=== PATIENT | female | born 2000 | race Hispanic/Latino ===

== ENCOUNTER 2020-11-09 14:44 | Outpatient (CLI) | payer OTHER | END 2020-11-09 14:45 | disposition home or self-care (01) | LOC: BICULT 14:44 | PROVIDERS: ATTEND Family Medicine | DX: Z34.02 Encounter for supervision of normal first pregnancy, second trimester (principal); Z3A.19 19 weeks gestation of pregnancy | CPT/HCPCS: 76805 ==

== ENCOUNTER 2023-03-22 19:27 | Emergency (ER) | payer MEDICAID, SELFPAY ==
[2023-03-22] MEDS ORDERED: Ondansetron ODT 4 MG TAB ONE (19:40)
[2023-03-22 19:57] LABS: #Eosinphils 0.3 thou/uL (0.0-0.7); #Monocytes 0.9 thou/uL (0.11-0.59); #Neutrophils 6.4 thou/uL (1.40-6.50); %Basophils 0.1 % (0.0-1.0); %Eosinophils 2.4 % (0.0-10.0); %Lymphocytes 26.1 % (21.0-51.0); %Monocytes 8.8 % (0.0-10.0); %Neutrophils 62.3 % (42.0-75.0); Hematocrit 34.5 % (36.0-47.0); Hemoglobin 11.6 g/dL (12.0-16.0); Mean Corpuscular HGB CONC 33.6 g/dL (32.0-36.0); Mean Corpuscular Hemoglobin 28.3 pg (27.0-31.0); Mean Corpuscular Volume 84.1 fl (78.0-98.0); Mean Platelet Volume 10.8 fL (7.4-10.4); Platelet Count 223 10x3/uL (130-400); RBC Distribution Width 14.5 % (11.5-14.5); White Blood Cell (WBC) Count 10.3 10x3/uL (4.8-10.8)
[2023-03-22 20:11] LABS: PTT 26.2 sec (22.9-36.1); Prothrombin Time 13.8 sec (12.0-14.7)
[2023-03-22 20:25] LABS: ALT (SGPT) 16 U/L (8-55); AST (SGOT) 16 U/L (5-34); Albumin 4.3 g/dL (3.5-5.0); Alkaline Phosphatase 74 U/L (40-110); Anion Gap 13 mmol/L (10-20); BUN (Urea Nitrogen) 15 mg/dL (7.0-18.7); Bilirubin, Total 0.6 mg/dL (0.2-1.2); Calc. Creatinine Clearance 0 mL/min (70-130); Calcium 9.1 mg/dL (7.8-10.44); Carbon Dioxide 22 mmol/L (22-29); Chloride 104 mmol/L (98-107); Estimated GFR 124; Globulin 3.1 g/dL (2.4-3.5); Glucose 115 mg/dL (70-105); Potassium 3.7 mmol/L (3.5-5.1); Protein, Total 7.4 g/dL (6.0-8.3); Sodium 135 mmol/L (136-145)
[2023-03-22 21:02] LABS: BHCG - Serum POSITIVE (NEGATIVE); Pregs Control Background? CLEAR/WHITE (CLR/WHITE); Pregs Control Bar Appear? YES (CONTROL BAR)
[2023-03-22] MEDS ORDERED: Morphine 4 MG/ML VIAL ONE (21:12)
[2023-03-22] MEDS ORDERED: Ketorolac Tromethamine 30 MG/ML VIAL ONE (21:12)
== END 2023-03-22 22:25 | disposition home or self-care (01) ==
LOC: ERS 19:27
DX: O03.9 Complete or unspecified spontaneous abortion without complication (principal); Z3A.00 Weeks of gestation of pregnancy not specified
CPT/HCPCS: 36415; 76856; 80053; 83605; 84702; 84703; 85025; 85610; 85730; 86850; 86900; 86901; 87040; 93005; 93976; 96361; 96374; 96375; J1885; J2270; Q0162